=== PATIENT | female | born 1985 | race American Indian/Alaskan Native ===

== ENCOUNTER 2016-10-27 18:37 | Emergency (ER) | payer SELFPAY ==
[2016-10-27] MEDS ORDERED: DECADRON IM ONE (19:34)
[2016-10-27] MEDS ORDERED: BENADRYL IM ONE (19:34)
[2016-10-27] MEDS ORDERED: PEPCID PO ONE (19:35)
[2016-10-27] MEDS ORDERED: BENADRYL PO ONE (19:35)
--- NOTE | 2016-10-27 21:01 | Emergency Department Report ---
HPI - General Chief Complaint: Allergic Reaction Time Seen by Provider: 10/27/16 19:30 - HPI HPI: 31-year-old female past medical history none presents with complaint of hives on her arms and legs trunk back and face. Patient states that she has a shrimp allergy and ate at a restaurant today. Patient states she ate chicken and subsequently developed hives onset body parts. Patient is awake alert and oriented 3 not in acute distress speaking in full sentences no audible wheezing or stridor. No visible facial swelling. Patient denies any pain in the back of her throat. Patient states that she asked the restaurant cooks about how her meal was prepared and discovered that chicken was fried and the same oil as shrimp which she is allergic to. Patient states that she took one 25 mg capsule Benadryl approximately 3 hours ago. Patient complaining of itchy rash on face arms and legs trunk and back. Patient has no visible signs of respiratory distress. ED Past Medical Hx - Past Medical History Previous Medical History?: No - Surgical History Past Surgical History?: No - Social History Smoking Status: Never Smoker Substance Use Type: None - Medications Home Medications: Home Medications Medication Instructions Recorded Confirmed Last Taken Type EPINEPHrine (NF) [Epipen (Nf)] 0.3 mg IM ONCE PRN #1 syringekit 10/27/16 Unknown Rx Famotidine [Pepcid] 20 mg PO BID PRN #1 bottle 10/27/16 Unknown Rx diphenhydrAMINE [Benadryl CAP] 50 mg PO Q8HR PRN #1 bottle 10/27/16 Unknown Rx predniSONE [Deltasone] 40 mg PO QDAY #10 tab 10/27/16 Unknown Rx ED Review of Systems ROS: Stated complaint: ALLERGIC REACTION TO SHRIMP Other details as noted in HPI Constitutional: denies: chills, fever Eyes: denies: eye pain, eye discharge, vision change ENT: denies: ear pain, throat pain Respiratory: denies: cough, shortness of breath, wheezing Cardiovascular: denies: chest pain, palpitations Endocrine: no symptoms reported Gastrointestinal: denies: abdominal pain, nausea, diarrhea Genitourinary: denies: urgency, dysuria, discharge Musculoskeletal: denies: back pain, joint swelling, arthralgia Skin: rash, pruritus. denies: lesions Neurological: denies: headache, weakness, paresthesias Psychiatric: denies: anxiety, depression Hematological/Lymphatic: denies: easy bleeding, easy bruising Physical Exam - Physical Exam Vital Signs: Vital Signs 10/27/16 18:44 Temperature 98.4 F Pulse Rate 96 H Respiratory 22 Rate Blood Pressure 150/101 O2 Sat by Pulse 100 Oximetry General: General: Well appearing, well nourished, in no distress. Oriented x 3, normal mood and affect. Ambulating without difficulty. Skin: Urticaria/hives on arms legs trunk back and face. Eyes: EOM intact, PERRLA Mouth: No oral pharyngeal lesions, oropharynx is patent and open. Mucous membranes moist, no mucosal lesions. Pharynx: Mucosa non-inflamed, no tonsillar hypertrophy or exudate Neck: Supple, without lesions, bruits, or adenopathy, thyroid non-enlarged and non-tender Heart: s1/s2 no murmurs, regular rate Lungs: Clear to auscultation b/l, no audible wheezing or stridor Abdomen: Bowel sounds normal, no tenderness, organomegaly, masses, or hernia ED Course Vital Signs 10/27/16 18:44 Temperature 98.4 F Pulse Rate 96 H Respiratory 22 Rate Blood Pressure 150/101 O2 Sat by Pulse 100 Oximetry ED Medical Decision Making - Medical Decision Making A/P: Urticaria, allergic reaction 1- Pepcid, Benadryl, Decadron IM 2- pt has no signs of angioedema clinically. speaking in full sentences able to swallow fluids without any difficulty no audible wheezing or stridor. 3- I discussed case with Dr. Daily will provide patient with short course of prednisone 4- EpiPen when necessary for anaphylaxis/angioedema. I educated patient on symptoms of angioedema and anaphylaxis, her family was present for conversation. I advised her to return to ED [facility] if she develops such a reaction Critical care attestation.: If time is entered above; I have spent that time in minutes in the direct care of this critically ill patient, excluding procedure time. ED Disposition Clinical Impression: Urticaria Disposition: DISCHARGED TO HOME OR SELFCARE Is pt being admited?: No Does the pt Need Aspirin: No Condition: Stable Instructions: Urticaria (ED) Prescriptions: diphenhydrAMINE [Benadryl CAP] 50 mg PO Q8HR PRN #1 bottle PRN Reason: Allergic Reaction EPINEPHrine (NF) [Epipen (Nf)] 0.3 mg IM ONCE PRN #1 syringekit PRN Reason: Anaphylaxis Famotidine [Pepcid] 20 mg PO BID PRN #1 bottle PRN Reason: Allergic Reaction predniSONE [Deltasone] 40 mg PO QDAY #10 tab Referrals: [facility] [Outside] - 3-5 Days [facility] [Outside] - 3-5 Days RAFAEL TALAMANTES MD [Staff Physician] - 3-5 Days Forms: Accompanied Note, Work/School Release Form(ED) Time of Disposition: 21:01
[2016-10-27 21:08] VITALS: BP 139/99
== END 2016-10-27 21:08 | disposition home or self-care (01) ==
LOC: ED 18:37
DX: L50.9 Urticaria, unspecified (principal)
CPT/HCPCS: 96372; 99282; J1100